=== PATIENT | female | born 1995 | race Caucasian/White ===

== ENCOUNTER → 2018-01-24 | Outpatient (CLI) | payer BC ==
[~2018-01-24] MED LIST: PREN-127 PO
[2018-01-24 10:41] LABS: PLATELET COUNT, AUTOMATED 260 K/uL (150-450)
== END ==
LOC: LAB 10:25
PROVIDERS: ATTEND Student in an Organized Health Care Education/Training Program
DX: Z34.91 Encounter for supervision of normal pregnancy, unspecified, first trimester (principal); R82.79 Other abnormal findings on microbiological examination of urine
CPT/HCPCS: 36415; 81001; 85025; 86592; 86703; 86762; 86850; 86900; 86901; 87088; 87340

== ENCOUNTER → 2018-01-31 | Outpatient (CLI) | payer BC | LOC: LAB 09:40 | PROVIDERS: ATTEND Student in an Organized Health Care Education/Training Program | DX: Z34.01 Encounter for supervision of normal first pregnancy, first trimester (principal) | CPT/HCPCS: 87491; 87591 ==

== ENCOUNTER → 2018-04-07 | Outpatient (CLI) | payer BC ==
--- NOTE | 2018-04-07 09:56 | RADIOLOGY IMAGING REPORT ---
FACILITY: [facility] PATIENT NAME: Jillian Mcdaniel : 1995 MR: [id number] V: [id number] EXAM DATE: ORDERING PHYSICIAN: SHAE DUBOSE TECHNOLOGIST: Location: [facility] [place] Patient: Jillian Mcdaniel : 1995 Visit/Account:[id number] Date of Sevice: 04/07/2018 OB ANATOMICAL SURVEY HISTORY: Anatomic survey COMPARISON: None. TECHNIQUE: Transabdominal imaging was performed for assessment of the fetus and maternal pelvic s tructures. Transvaginal imaging was not performed. FINDINGS: Intrauterine gestations: One. presentation: Cephalic. heart rate: 133 bpm. Amniotic fluid volume: Normal; TISH 15.4 cm; MVP 4.6 cm. Placenta: Anterior. Uterus: Gravid, otherwise grossly unremarkable where visualized. Maternal adnexa/ovaries: Grossly unremarkable, ovaries not visualized. Cervix: Grossly long and closed. Gestational Parameters: BPD: 4.65 cm, 34th percentile HC: Routine 0.85 cm, 36th percentile AC: 15.38 cm, 49th percentile FL: 3.51 cm, 65th percentile Average ultrasound age (AUA): 20 weeks/ five days Estimated age based on LMP: 20 weeks/ three days Estimated weight (EFW): 373 grams +/- 55 grams Anatomic Survey: Intracranial structures, 4-chamber heart, stomach, kidneys, urinary bladder, spine, 3-vessel cord and cord insertion are unremarkable. Two upper and two lower extremities visualized. There is a right c horoid plexus cyst identified measuring 5.4 x 4.6 mm IMPRESSION: Single viable fetus in cephalic presentation with an estimated gestational age by measurements of 20 weeks and five days. Estimated weight is 373 g. There is a right choroid plexus cyst measuring 5.4 x 4.6 mm Report Dictated By: Elizabeth Toledo MD at 04/07/2018 9:38 AM Report E-Signed By: Elizabeth Toledo MD at 04/07/2018 9:43 AM WSN:[email or web address]
== END ==
LOC: RAD 07:54
PROVIDERS: ATTEND Student in an Organized Health Care Education/Training Program
DX: Z02.9 Encounter for administrative examinations, unspecified (principal)
CPT/HCPCS: 76811

== ENCOUNTER → 2018-05-18 | Outpatient (CLI) | payer BC ==
[~2018-05-18] MED LIST changes: +DIPH0.5D12 IM; +FLU180SY11 IM
== END ==
LOC: LAB 08:21
PROVIDERS: ATTEND Student in an Organized Health Care Education/Training Program
DX: Z34.92 Encounter for supervision of normal pregnancy, unspecified, second trimester (principal)
CPT/HCPCS: 36415; 82950; 85027

== ENCOUNTER → 2018-07-18 | Outpatient (CLI) | payer BC, MEDICAID ==
--- NOTE | 2018-07-18 13:54 | RADIOLOGY IMAGING REPORT ---
FACILITY: [facility] [place] PATIENT NAME: Jillian Mcdaniel : 1995 MR: [id number] V: [id number] EXAM DATE: [id number] ORDERING PHYSICIAN: SHAE DUBOSE TECHNOLOGIST: Location: [facility] Patient: Jillian Mcdaniel : 1995 Visit/Account:[id number] Date of Sevice: 07/18/2018 Exam type: [facility] OB LIMITED History: Follow-up choroid plexus cyst Comparison: April 07, 2018. Findings: heart rate was 146 bpm. Single fetus in cephalic presentation. The right choroid plexus cyst has decrease in size now measuring 2.2 x 2.6 mm as opposed to 5.4 x 4.6 mm previously IMPRESSION: 1. Right choroid plexus cyst has decrease in size when compared the prior study as described above Report Dictated By: Elizabeth Toledo MD at 07/18/2018 1:42 PM Report E-Signed By: Elizabeth Toledo MD at 07/18/2018 1:50 PM WSN:[email or web address]
== END ==
LOC: RAD 11:36
PROVIDERS: ATTEND Student in an Organized Health Care Education/Training Program
DX: Z36.89 Encounter for other specified antenatal screening (principal); Q04.6 Congenital cerebral cysts

== ENCOUNTER → 2018-07-28 | Outpatient (CLI) | payer BC, MEDICAID | LOC: LAB 08:29 | PROVIDERS: ATTEND Student in an Organized Health Care Education/Training Program | DX: Z34.93 Encounter for supervision of normal pregnancy, unspecified, third trimester (principal) | CPT/HCPCS: 87081 ==

== ENCOUNTER → 2018-08-01 | Outpatient (CLI) | payer BC, MEDICAID | LOC: LAB 10:00 | PROVIDERS: ATTEND Student in an Organized Health Care Education/Training Program | DX: O26.619 Liver and biliary tract disorders in pregnancy, unspecified trimester (principal) | CPT/HCPCS: 36415; 82040; 82239; 82247; 82310; 82374; 82435; 82565; 82947; 84075; 84132; 84155; 84295; 84450; 84460; 84520; 85027 ==

== ENCOUNTER 2018-08-02 19:36 | Inpatient (IN) | payer MEDICAID ==
[~2018-08-02] VITALS: Ht 172.7 cm; Wt 78.9 kg
[2018-08-02] MEDS ORDERED: FAMOTIDINE(*) 20MG/50ML PREMIX 50 ML IVPB PRN (19:39)
[2018-08-02] MEDS ORDERED: FLUSH 10 ML SYR IVP PRN (19:40)
[2018-08-02] MEDS ORDERED: fentaNYL CITR 100 MCG/2 ML AMP IVP PRN ×2 (19:40→20:40)
[2018-08-02] MEDS ORDERED: TERBUTALINE SULF 1 MG/ML VIAL SUBQ PRN (19:40)
[2018-08-02] MEDS ORDERED: cefOXitin/DEX(*) 2GM/50ML PREM 50 ML IVPB PRN (19:40)
[2018-08-02] MEDS ORDERED: METOCLOPRAMIDE 10 MG/2 ML SDV IVP PRN (19:40)
[2018-08-02] MEDS ORDERED: LIDOCAINE 1% LOCAL 300 MG/30ML INJ PRN (19:40)
[2018-08-02] MEDS ORDERED: LIDOCAINE/SOD BICARB 8.4% SYR SC PRN (19:40)
[2018-08-02] MEDS ORDERED: DINOPROSTONE 10 MG INSERT PV ONE (19:45)
[2018-08-02 20:00] VITALS: Ht 172.7 cm; Wt 78.9 kg
[2018-08-02] MEDS ORDERED: ACETAMINOPHEN 325 MG TAB PO PRN (20:40)
[2018-08-02] MEDS ORDERED: ZOLPIDEM TARTRATE 5 MG TAB PO PRN (20:40)
[2018-08-02] MEDS ORDERED: ceFAZolin(*) 2GM/D5W 50ML 50 ML IVPB PRN (20:40)
[2018-08-02] MEDS ORDERED: ONDANSETRON 4 MG/2 ML VIAL IVP PRN (20:40)
[2018-08-02 21:38] LABS: PLATELET COUNT, AUTOMATED 311 K/uL (150-450)
[2018-08-03] MEDS ORDERED: EPIDURAL KEYS XX PRN ×2
[2018-08-03] MEDS: LR(*) 1000 ML BAG 1,000 ML IV PRN ×3 (00:10→05:22)
[2018-08-03] MEDS ORDERED: fentaNYL CITR 100 MCG/2 ML AMP ONE (00:17)
[2018-08-03] MEDS ORDERED: BUPIVACAINE 0.25% MPF INJ ONE (00:17)
[2018-08-03] MEDS ORDERED: OXYTOCIN 30 UNIT/D5LR 500 ML 500 ML ONE (00:21)
[2018-08-03] MEDS ORDERED: FENTANYL/ROPIVACAINE 100ML BAG 100 ML ONE (00:21)
[2018-08-03] MEDS ORDERED: LIDOCAINE/PF 2% 200MG/10ML AMP 200 MG/10 ML AMPUL EPI PRN ×2 (01:05→02:55)
[2018-08-03] MEDS ORDERED: BUPIVACAINE 0.5% INJ 30ML VIAL EPI PRN ×2 (01:05→02:55)
[2018-08-03] MEDS ORDERED: fentaNYL CITR 100 MCG/2 ML AMP IT PRN ×2 (01:05→02:55)
[2018-08-03] MEDS ORDERED: BUPIVACAINE 0.25% MPF INJ EPI PRN ×2 (01:05→02:55)
[2018-08-03] MEDS ORDERED: LIDO/EPI 2% MPF 1:200,000 20ML EPI PRN ×2 (01:05→02:55)
[2018-08-03] MEDS ORDERED: FENTANYL/ROPIVACAINE 100 ML BAG EPI PRN ×2 (01:05→02:55)
--- NOTE | 2018-08-03 01:07 | Anesthesia OB Pre-Anes Eval ---
History of Present Illness Anesthesia Start Date: Aug 03, 2018 Anesthesia Start Time: 00:27 OB Anesthesia Diagnosis: induction - medical Current Complication: other (cholestasis) EDC: Aug 22, 2018 : 1 Para: 0 Vital Signs: 124/64 94 16 Pain Ratin Result Diagram: 08/02/18212608/02/182126 Height (Inches): 68.00 Weight (Pounds): 174 Past Medical History Medical History: scoliosis Surgical History: no surgical history Hx Anesthesia Reactions: No Hx Family Anesthesia Reaction: No Home Meds Reported Medications Vits W-Ca,Fe,Fa(<1MG) ( VITAMINS) 1 Each Tablet, 1 EACH PO DAILY, TAB 01/24/18 Allergies: Coded Allergies: No Known Drug Allergies (Unverified , 01/24/18) Anesthesia OB ROS Neurological: No migraines/headaches, No seizures, No neuropathy, No other ENT: Denies Tooth caps, Denies Loose teeth, Denies Chipped teeth, Denies Dentures, Denies Bridges, Denies Retainers, Denies Veneers, Denies Implants, Denies Tongue ring, Denies Other Pulmonary: No asthma, No smoker (pks/day/yrs), No other Airway Class: ll Cardiovascular ROS: No edema, No arrhythmia, No other GI ROS: clear liquids Last Solids Date: Aug 03, 2018 Last Solids Time: 18:30 ROS: Other (cholestasis) Endocrine ROS: No diabetes, No gestational diabetes, No thyroid disorder, No other Musculoskeletal ROS: scoliosis ASA Classification: 2 Assessment and Plan Anesthesia Plan: JAMA WHEAT CRNA Aug 03, 2018 01:07
--- NOTE | 2018-08-03 01:09 | Procedure Note ---
Anesthetic Placement Note Anesthesia Plan: CSE Permit for Anesthesia Signed: Yes Anesthesia Technique: Patient Sitting Anesthesia Prep: Chlorhexidine Interspace: L 3-4 Local Anesthetic: 1% Lidocaine Amount Local - cc's: 3 Anesthesia Needle: 17g Touhy/Schliff Anesthesia Attempts: 1 Loss of Resistance: Normal Saline Depth of BENIGNO (cm): 4.5 Epidural Needle Placement: No CSF, No Blood, No Parasthesia Intrathecal Needle: 27 Gauge Pencan Cerebral Spinal Fluid: Yes, Clear Catheter Insertion (cm): 4 (9cm at skin) Epidural Dressing: Tegaderm, Tape Anesthesia Tray: Lot Number ([id number]), Expiration Date (05/11), Reference Number ([id number]) Anesthesia Medications: Intrathecal Dose: mcg Fentanyl (10), mg Marcaine MPF (2.5), Time (0040) Epidural Test Dose: 1.5 Lido/Epi (1:200,000), Dose - mL (3), Time (0042), Negative Epidural Infusion: 0.2% Ropivicaine, With Fentanyl 2mcg/ml, Start Time: (0055) Epidural Pump Setting: Bolus Dose - mL (8), Lockout - Minutes (20), Maintenance Rate - mL/hr (6), Maximum per Hour - mL (30) Complications: None JAMA CHATMAN CRNA Aug 03, 2018 01:09
[2018-08-03] MEDS ORDERED: OXYTOCIN 10 UNIT/ML SDV ONE (01:56)
--- NOTE | 2018-08-03 07:44 | History & Physical ---
History of Present Illness Age of Patient: 23 : 1 Para or TPAL: 0 EDC per LMP: Aug 22, 2018 Estimated Gestational Age: 37.2 Chief Complaint Itching of soles and palms History of Present Illness Pt is a 23 y/o @ 37-2/7 wga by 1st trimester U/S who presents to L&D for a scheduled IOL secondary to Cholestastasis. Pt reports itching of soles and palms. Reports no headache or visual changes.. No RUQ pain. History Patient's Blood Type: A Positive Rubella Status: Immune Group B Strep Screen: Negative Obstetrical History: Past Medical History: Non contributory Allergies: Coded Allergies: No Known Drug Allergies (Unverified , 01/24/18) Social History: Un-planned Denies X 3 Family History: FH: breast cancer maternal grandmother, Onset:50's - 60 maternal aunt, Onset:40's - 50 (genetic testing negative) maternal great aunt, Onset:60 years & older FH: type 1 diabetes cousin Med Rec Home Meds Reported Medications Vits W-Ca,Fe,Fa(<1MG) ( VITAMINS) 1 Each Tablet, 1 EACH PO DAILY, TAB 01/24/18 Review of Systems All Systems Reviewed/Normal: Yes, Except as Noted Constitutional: No Fever, No Weight Loss, No Weight Gain, No Chills, No Night Sweats, No Other Neurological: No Syncope, No Confusion, No Weakness, No Dizziness, No Slurred Speech, No Other Eyes: No Vision Change, No Loss of Vision, No Photophobia, No Other ENT: No Hearing Loss, No Sinus Congestion, No Sore Throat, No Ear Ache, No Tinnitus, No Other Cardiovascular: No Chest Pain, No Palpitations, No Orthostatic Hypotension, No Other Respiratory: No Shortness of Breath, No Cough, No Wheezing, No Other Gastrointestinal: No Nausea, No Vomiting, No Diarrhea, No Dysphagia, No Constipation, No Early Satiety, No Hematemesis, No Hematochezia, No Melena, No Abdominal Pain, No Other Genitourinary: No Dysuria, No Hematuria, No Urinary Incontinence, No Other Musculoskeletal: No Pain, No Sprain, No Strain, No Impaired Mobility, No Other Psychiatric: No Depression, No Anxiety, No Other Exam General Exam General Apperance: Alert/Awake/No Acute Distress Neuro: No Gross deficits Eyes: Normal Extraocular Movement & Vison, PERRLA ENT: Normal Cardiovascular: Regular Rate and Rhythm Respiratory: No Respiratory Distress, Clear to Auscultation Abdomen: Soft, Non-Tender, Non-Distended : Normal Musculoskeletal: No Weakness/Pain Extremities: No Cyanosis,Clubbing or Edema Integumentary: Skin Intact without Lesions or Rash Psychological: Alert & Oriented X3, Appropriate Mood & Affect Vaginal Discharge/Fluid?: Clear Fluid (with amniotomy) Cervical Dialation: 5 Cervical Effacement (%): 75 Cervical Consistency: Moderate Cervical Position: Mid Station: -2 Presentation: Vertex Uterine Contractions(Q min): 3 Uterine Contraction Strength: Moderate UC Resting Tone: Soft Fetus Feeling Movement?: Yes Estimated Weight(grams): 2800 Heart Tones: 135 Heart Tone Variabilty: Moderate FHT Accelerations: 15X15 FHT Decelerations: None FHT Category: I Medical Decision Making Data Points Result Diagram: 08/02/18212608/02/182126 Pre-Admit Course Medical Record Review: Yes VTE Prophylasis: Adult Deep Vein Thrombosis/Pulmonary: No 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 Pt to get checked again in 1 hr. If no change start oxytocin. Repeat cbc/cmp. SHAE DUBOSE DO Aug 03, 2018 07:44
[2018-08-03 08:14] LABS: PLATELET COUNT, AUTOMATED 281 K/uL (150-450)
--- NOTE | 2018-08-03 09:55 | Anesthesia Progress Note ---
Progress/Maintenance Anesthesia Note Date: Aug 03, 2018 Anesthesia Note Time: 07:00 Pain Intensity: 1 Pump: On Pump Rate (ML/HR): 6 Motor Level: Bending Knees-Bilateral Dilatation: 5 Position: Right JAMA CHATMAN CRNA Aug 03, 2018 09:55
--- NOTE | 2018-08-03 09:58 | Anesthesia Progress Note ---
Progress/Maintenance Anesthesia Note Date: Aug 03, 2018 Anesthesia Note Time: 09:45 Pain Intensity: 7 Pump: On Pump Rate (ML/HR): 6 Sensory Level: feeling on LLQ Motor Level: Bending Knees-Bilateral Dilatation: 7 Position: Left Drug Bolus: 0.25% Marcaine (5cc), Other (Fentanyl 90 mcg) Anesthesia Treatment: turned and bolused, pain decreased to 4 JAMA CHATMAN CRNA Aug 03, 2018 09:58
--- NOTE | 2018-08-03 13:24 | Labor Progress Note ---
Labor Subjective Progress Notes Subjective Doing good. Having some issues with pain. Pt feeling no headache or blurry vision. 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 Start oxytocin. Expect . SHAE DUBOSE DO Aug 03, 2018 13:24
[2018-08-03] MEDS ORDERED: OXYTOCIN 30 UNIT/D5LR 500 ML 500 ML IV PRN (13:25)
--- NOTE | 2018-08-03 13:28 | Anesthesia Progress Note ---
Progress/Maintenance Anesthesia Note Date: Aug 03, 2018 Anesthesia Note Time: 12:00 Pain Intensity: 3 Pump: On Pump Rate (ML/HR): 6 Motor Level: Bending Knees-Bilateral Dilatation: 8 Position: Left Drug Bolus: 0.5% Marcaine (5cc) Anesthesia Treatment: bolused and turned , having some rectal pressure JAMA CHATMAN CRNA Aug 03, 2018 13:28
--- NOTE | 2018-08-03 13:30 | Anesthesia Progress Note ---
Progress/Maintenance Anesthesia Note Date: Aug 03, 2018 Anesthesia Note Time: 13:15 Pain Intensity: 7 Pump: On Pump Rate (ML/HR): 12 Dilatation: 9 Position: Right Drug Bolus: Other (2% lido w epi 5cc) Anesthesia Treatment: turned and bolused , increased pump rate JAMA CHATMAN CRNA Aug 03, 2018 13:30
--- NOTE | 2018-08-03 15:23 | Anesthesia Progress Note ---
Progress/Maintenance Anesthesia Note Date: Aug 03, 2018 Anesthesia Note Time: 15:00 Pain Intensity: 6 Pump: On Pump Rate (ML/HR): 12 Sensory Level: Pt still uncomfortable Motor Level: Bending Knees-Bilateral Dilatation: 9 Position: Right Drug Bolus: 0.5% Marcaine (5 cc) Anesthesia Treatment: noticed the pt gown wet/catheter loose from connector/ dosed ... no pain JAMA CHATMAN CRNA Aug 03, 2018 15:23
--- NOTE | 2018-08-03 18:03 | Labor Progress Note ---
Labor Subjective Progress Notes Subjective Pt delivered. 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 Live born female infant 7#4OZ. aPGARS 8/9. SHAE DUBOSE DO Aug 03, 2018 18:03
[2018-08-03] MEDS ORDERED: ACETAMINOPHEN 325 MG TAB PO PRN (18:05)
[2018-08-03] MEDS ORDERED: APAP/HYDROCODONE 325/5 TAB PO PRN (18:05)
[2018-08-03] MEDS ORDERED: MAGNESIUM HYDROXIDE* 30ML UDCP PO PRN (18:05)
[2018-08-03] MEDS ORDERED: HYDROCORTISONE 2.5% CR 30GM TB PR PRN (18:05)
[2018-08-03] MEDS ORDERED: BENZOCAINE 20% 60 ML BTL TP PRN (18:05)
[2018-08-03] MEDS ORDERED: GLYCERIN/WITCH HAZEL LEAF 1 PK TP PRN (18:05)
[2018-08-03] MEDS ORDERED: LANOLIN OINT 7 GM TUBE TP PRN (18:05)
--- NOTE | 2018-08-03 18:07 | Anesthesia Progress Note ---
Assessment and Plan Anesthesia Plan: CSE Anesthesia Stop Day: Aug 03, 2018 Anesthesia Stop Time: 17:45 JAMA CHATMAN CRNA Aug 03, 2018 18:07
--- NOTE | 2018-08-03 18:09 | Labor Progress Note ---
Labor Subjective Progress Notes Subjective Pt is feeling much better with pain control. She is feeling a lot of rectal pressure, but the pain in her lower back and right side has improved. Her mother and boyfriend are at the bedside and are very supportive. Vaginal Discharge/Fluid: Bloody Show, Clear Fluid Labor Pain: Mild Neurological: No Headache Eyes: No Visual Disturbances Labor Objective Vital Signs VS reviewed Vaginal Discharge/Fluid?: Bloody Show Cervical Dialation: 9.5 Cervical Effacement (%): 100 Cervical Consistency: Soft Cervical Position: Anterior Station: +1 Presentation: Vertex Uterine Contraction Strength: Moderate UC Resting Tone: Soft Fetus Estimated Weight(grams): 3500 Heart Tones: 135 Heart Tone Variabilty: Moderate FHT Accelerations: 15X15 FHT Decelerations: None FHT Category: I General Exam General Appearance: Alert/Awake/No Acute Distress ENT: Normal Respiratory: No Respiratory Distress Abdomen: Gravid - Non-Tender Musculoskeletal: No Weakness/Pain Integumentary: Skin Intact without Lesions or Rash Psychological: Alert & Oriented X3, Appropriate Mood & Affect Other Result Diagram: 08/03/1880808/03/18808 Assessment and Plan Hospital Day: 1 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 at 37- 2/7 with an Estimated Date of Delivery: dated by LMP and early US Labor state: Active labor: entering transition phase; good cervical change in the past hour well-being: Category I FHT: continuous monitoring for ARTEMIO and high risk Cholestasis in Maternal well-being: VS, afebrile, occ. mild range BP when in pain, but normal range since pain has improved. AROM by Dr. Shaikh at 0731 08/03 for moderate amount of clear fluid, continued leaking, bloody show PNL: GBS neg, Type/Rh , rubella immune Pain Management: Continuous lumbar epidural, Bolus PRN for pain Feed: Breast PPBCM: c/b: -Cholestasis of - Anticipate NSVB, re-evaluate in 30 minutes or prn RADHA BANUELOS CNM Aug 03, 2018 15:29
--- NOTE | 2018-08-03 18:10 | OB Delivery Note ---
Delivery Note Vaginal Delivery Type: Spont. Vaginal Delivery Delivery Date: Aug 03, 2018 Delivery Time: 17:36 Estimated Gestational Age(wks): 37 Length of Labor Stage II (hrs): 2 Labor Stage III (minutes): 5 Delivery Anesthesia: Epidural Infant Sex: Female Infant Weight (gms): 3300 Apgars: 1 Minute, 5 Minute Apgars for Baby B: 1 Minute Estimated Blood Loss: 250 Notes: AG is a 23yo @ 37- 2/7 who was admitted to the family care unit on 08/02/18 at 1930 for IOL for cholestasis. Cervical exam on admission was 5/ 70/-2. She had AROM on 08/03/[address] Shaikh for a moderate amount of clear fluid. Pt was GBS negative. FHR CAT I primarily throughout first stage. Pt utilized continuous labor epidural primarily for pain management. Pt was completely dilated on 08/03/18 at 1530 and pt began pushing @ 1615 with good maternal effort for little over an hour. At 1736 pt had a NSVB of live female with Apgars 8/9, weighing 3300g. The head delivered spontaneously in the direct OA position and restituted MADHAVI with a loose, easily reducible nuchal cord. The anterior shoulder was delivered atraumatically and the posterior shoulder followed. Body delivered easily. Face was wiped with nose and bulb suction and then placed on the maternal abdomen. The infant was dried and stimulated and noted to have a spontaneous cry and spontaneous movement of all 4 extremities. Cord was clamped X 2 by ANA after 3 minutes and cut by patient's spouse. Mother was in SF position. At 1741 the placenta and membranes delivered spontaneous and intact with a 3 vessel cord after gentle downward traction. 30 units of Pitocin was placed in 500cc IV to firm the uterus and started immediately after placenta delivery. Upon inspection of the perineum it was found to be intact. A small left and right labial laceration was noted, but hemostatic. No repair necessary. EBL 250 with fundus firm and minimal bleeding. Mom and baby were left in stable condition. I personally examined the patient and there are no unintended foreign objects in the vagina. Jessie Shukla CNM was present throughout the entire delivery as well as Dr. Destin Shaikh Fountain Roller Assembler in Attendence: JESSIE Urban CNM Aug 03, 2018 18:10
[2018-08-03] MEDS: IBUPROFEN 800 MG TAB PO SCH (18:16)
[2018-08-03 19:30] VITALS: BP 135/74
[2018-08-03 21:25] VITALS: BP 130/87
[2018-08-03] MEDS: DOCUSATE CALCIUM 240 MG CAP PO SCH (21:40)
[2018-08-04 01:15] VITALS: BP 114/74
[2018-08-04] MEDS: IBUPROFEN 800 MG TAB PO SCH ×3 (02:38→17:54)
[2018-08-04 03:30] VITALS: BP 124/74
[2018-08-04 07:15] VITALS: BP 118/72
--- NOTE | 2018-08-04 08:18 | OB/GYN Progress Note ---
OB Subjective Progress Notes Subjective Pt doing better this morning. Reports pain controlled. Ambulatory in room only. Voiding with out any difficulty. Tolerating po intake. GI: NEG Nausea, NEG Vomiting, NEG Flatus, NEG Bowel Movement : Voiding Well, Vaginal Bleeding, Scant Pain: Mild Neurological: No Headache, No Other Eyes: No Visual Disturbances OB Objective Physical Exam Vital Signs Date Time Temp Pulse Resp B/P (MAP) Pulse Ox O2 Delivery O2 Flow Rate FiO2 08/04/18 03:30 98.0 16 124/74 (91) Room Air 08/04/18 01:15 76 08/03/18 19:30 91 Intake and Output 08/04/18 07:00 Intake Total 1300 ml Output Total 2400 ml Balance -1100 ml Intake IV Total 1300 ml Output Urine Total 2400 ml # Voids 3 General Appearance: Alert/Awake/No Acute Distress Neurological: No Gross deficits Eyes: Normal Extraocular Movement & Vison, PERRLA ENT: Normal Cardiovascular: Normal Rhythm & Peripheral Pulses, Regular Rate and Rhythm Respiratory: No Respiratory Distress Abdomen: Soft, Non-Tender, Non-Distended, Fundus Firm Musculoskeletal: No Weakness/Pain Extremities: No Cyanosis,Clubbing or Edema Integumentary: Skin Intact without Lesions or Rash Psychological: Alert & Oriented X3, Appropriate Mood & Affect Result Diagram: 08/04/18 0542 08/04/18 0542 Assessment and Plan Problems: (1) Cholestasis during in third trimester Status: Acute Assessment & Plan: Liver enzymes dropping. Will monitor patient today. Likely stay an additional night. SHAE DUBOSE DO Aug 04, 2018 08:18
--- NOTE | 2018-08-04 09:24 | OB/GYN Progress Note ---
OB Objective Physical Exam Vital Signs Date Time Temp Pulse Resp B/P (MAP) Pulse Ox O2 Delivery O2 Flow Rate FiO2 08/04/18 03:30 98.0 16 124/74 (91) Room Air 08/04/18 01:15 76 08/03/18 19:30 91 Intake and Output 08/04/18 06:59 Intake Total 1300 ml Output Total 2400 ml Balance -1100 ml Intake IV Total 1300 ml Output Urine Total 2400 ml # Voids 3 General Appearance: Alert/Awake/No Acute Distress Neurological: No Gross deficits Eyes: Normal Extraocular Movement & Vison, PERRLA ENT: Normal Cardiovascular: Normal Rhythm & Peripheral Pulses, Regular Rate and Rhythm Respiratory: No Respiratory Distress Abdomen: Soft, Non-Tender, Non-Distended, Fundus Firm Musculoskeletal: No Weakness/Pain Extremities: No Cyanosis,Clubbing or Edema Integumentary: Skin Intact without Lesions or Rash Psychological: Alert & Oriented X3, Appropriate Mood & Affect Result Diagram: 08/04/18 0542 08/04/18 0542 Assessment and Plan Problems: (1) Cholestasis during in third trimester Status: Acute RADHA BANUELOS CNM Aug 04, 2018 09:24
[2018-08-04] MEDS: DOCUSATE CALCIUM 240 MG CAP PO SCH ×2 (09:30→21:46)
[2018-08-04 11:08] VITALS: BP 110/71
[2018-08-04 15:15] VITALS: BP 127/91
--- NOTE | 2018-08-04 15:58 | Anesthesia Post Eval Note ---
Anesthesia Post Eval Note Vital Signs 08/04/18 15:15 Temp 98.6 Pulse 75 Resp 16 B/P (MAP) 127/91 (103) Pulse Ox 96 O2 Delivery Room Air Pt able to participate in Eval: Yes Cardiovascular Status: Satisfactory Respiratory Status: Satisfactory Pain Managment: Satisfactory PO Nausea/Vomiting: Satisfactory Temperature Management: Satisfactory Mental Status: Satisfactory, Alert, Oriented X3 Post-Op Hydration Status: Satisfactory, Tolerating PO Well, Voiding w/o Difficulty Anesthesia Type: JAMA WHEAT CRNA Aug 04, 2018 15:58
[2018-08-04 21:47] VITALS: BP 114/74
[2018-08-05 00:33] VITALS: BP 131/92
[2018-08-05] MEDS: IBUPROFEN 800 MG TAB PO SCH ×3 (02:20→18:02)
[2018-08-05 08:40] VITALS: BP 122/78
[2018-08-05] MEDS: DOCUSATE CALCIUM 240 MG CAP PO SCH (08:49)
--- NOTE | 2018-08-05 10:04 | OB/GYN Progress Note ---
OB Subjective Progress Notes Subjective Doing better this morning. Reports pain controlled. Pumping as baby is in the nursery. Tolerating regular diet. Ambulatory. Voiding with out any difficulty. Lochia appropriate. GI: NEG Nausea, NEG Vomiting, NEG Flatus, NEG Bowel Movement : Voiding Well, Vaginal Bleeding, Scant Pain: Comfortable, Tolerating PO Pain Meds Neurological: No Headache, No Other Eyes: No Visual Disturbances OB Objective Physical Exam Vital Signs Date Time Temp Pulse Resp B/P (MAP) Pulse Ox O2 Delivery O2 Flow Rate FiO2 08/05/18 08:40 98.3 80 17 122/78 (93) Room Air 08/04/18 21:47 95 Intake and Output 08/05/18 06:59 Intake Total 430 ml Balance 430 ml Intake Oral 430 ml # Voids 1 General Appearance: Alert/Awake/No Acute Distress Neurological: No Gross deficits Eyes: Normal Extraocular Movement & Vison, PERRLA ENT: Normal Cardiovascular: Normal Rhythm & Peripheral Pulses, Regular Rate and Rhythm Respiratory: No Respiratory Distress Abdomen: Soft, Non-Tender, Non-Distended, Fundus Firm Musculoskeletal: No Weakness/Pain Extremities: No Cyanosis,Clubbing or Edema Integumentary: Skin Intact without Lesions or Rash Psychological: Alert & Oriented X3, Appropriate Mood & Affect Result Diagram: 08/04/18 0542 08/05/18 0845 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 Will given the patient the opportunity to be discharged and go to room in status or watch her again overnight and repeat labs in the morning. Symptoms resolving/improving. SHAE DUBOSE DO Aug 05, 2018 10:04
[2018-08-05] MEDS ORDERED: IBUP800T37 PO (10:05)
[2018-08-05] MEDS ORDERED: LOR5/325 PO (10:05)
--- NOTE | 2018-08-05 10:09 | OB/GYN Discharge Summary ---
Discharge Summary Reason for Hosp/Final Diag: (1) Cholestasis during in third trimester Status: Acute Hospital Course & Plan: Pt presented for a scheduled IOL secondary to cholestasis of . Preogressed quickly to complete and plus two. Pushed for just over an hour. See delivery note for details of delivery. Remained in the hospital for 2 days post . Her labs were monitored with improvement in liver enzymes. Pt desired to go to room in status. Lates Vital Signs Vital Signs Date Time Temp Pulse Resp B/P (MAP) Pulse Ox O2 Delivery O2 Flow Rate FiO2 08/05/18 08:40 98.3 80 17 122/78 (93) Room Air 08/04/18 21:47 95 Weight (Pounds): 174 Result Diagram: 08/04/18 0542 08/05/18 0845 Condition: Improved Discharge: Home Home Meds Active Scripts Hydrocodone Bit/Acetaminophen (HYDROCODON-ACETAMINOPHEN 5-325) 1 Each Tablet, 1-2 EACH PO Q4H PRN for PAIN, #20 TAB 0 Refills Prov:SHAE DUBOSE DO 08/05/18 Reported Medications Vits W-Ca,Fe,Fa(<1MG) ( VITAMINS) 1 Each Tablet, 1 EACH PO DAILY, TAB 01/24/18 Follow up with: [facility] [phone], Dr. Dubose [phone] Follow up in: 6 wks PP or PO, 2 wks PO Discharge Diet: As Tolerates, Increase Fluid Intake Discharge Activity: As Tolerates, Pelvic Rest SHAE DUBOSE DO Aug 05, 2018 10:09
[2018-08-05 12:30] VITALS: BP 130/86
== END 2018-08-05 18:15 | disposition home or self-care (01) | DRG 805 ==
LOC: OB 19:36
PROVIDERS: ADMIT Student in an Organized Health Care Education/Training Program; ATTEND Student in an Organized Health Care Education/Training Program
PROC: 10E0XZZ Delivery of Products of Conception, External Approach (ICD-10-PCS; principal; 2018-08-02)
PROC: 10907ZC Drainage of Amniotic Fluid, Therapeutic from Products of Conception, Via Natural or Artificial Opening (ICD-10-PCS; 2018-08-02)
PROC: 3E033VJ Introduction of Other Hormone into Peripheral Vein, Percutaneous Approach (ICD-10-PCS; 2018-08-02)
DX: O26.62 Liver and biliary tract disorders in childbirth (principal); K83.1 Obstruction of bile duct; Z37.0 Single live birth; O69.81X0 Labor and delivery complicated by cord around neck, without compression, not applicable or unspecified; Z3A.37 37 weeks gestation of pregnancy
CPT/HCPCS: 36415; 82040; 82247; 82310; 82374; 82435; 82565; 82947; 84075; 84132; 84155; 84295; 84450; 84460; 84520; 85025; 85027; 86850; 86900; 86901; J2405; J2590; J3010; J7120; S0020